=== PATIENT | female | born 1975 | race Caucasian/White ===

== ENCOUNTER 2017-10-26 15:16 | Emergency (ER) | payer BC, OTHER ==
[~2017-10-26] VITALS: Ht 162.6 cm; Wt 81.7 kg
[2017-10-26] MEDS ORDERED: FLEXERIL PO (16:22)
[2017-10-26] MEDS ORDERED: MEDROLDOSEPACK PO (16:22)
[2017-10-26] MEDS ORDERED: HYDROCODONE-AP1 EAC6 PO (16:22)
== END 2017-10-26 16:24 | disposition home or self-care (01) ==
LOC: ER 15:16
DX: S16.1XXA Strain of muscle, fascia and tendon at neck level, initial encounter (principal); S80.00XA Contusion of unspecified knee, initial encounter; V48.0XXA Car driver injured in noncollision transport accident in nontraffic accident, initial encounter; Y93.89 Activity, other specified; Y92.89 Other specified places as the place of occurrence of the external cause; Y99.8 Other external cause status